=== PATIENT | male | born 1975 | race Caucasian/White ===

== ENCOUNTER 2019-01-01 11:05 | Emergency (ER) | payer MEDICAID, OTHER ==
[~2019-01-01] VITALS: Ht 177.8 cm; Wt 95.5 kg
[2019-01-01 11:34] VITALS: BP 121/95
[2019-01-01] MEDS ORDERED: TETanus/Pertussis (Acell)/Diphther VAC/PF (Tdap-Adult) 0.5ml syringe IMVAC ONE (12:15)
[2019-01-01] MEDS ORDERED: DOXY100C43 PO (13:17)
== END 2019-01-01 13:27 | disposition home or self-care (01) ==
LOC: ER 11:06
DX: L03.011 Cellulitis of right finger (principal); Z79.899 Other long term (current) drug therapy
CPT/HCPCS: 73130; 90471; 90715; 99283

== ENCOUNTER 2019-11-24 10:05 | Emergency (ER) | payer MEDICAID ==
[~2019-11-24] VITALS: Ht 177.8 cm; Wt 87.5 kg
[2019-11-24] MEDS ORDERED: ondansetron 4mg rapidly disintigrating tab PO ONE (10:55)
[2019-11-24] MEDS ORDERED: normal saline 1000ml 1,000 ML IV ONE (10:55)
[2019-11-24 11:30] LABS: BASOPHILS # (AUTO) 0.1 X10'3 (0-0.2); BASOPHILS % (AUTO) 0.4 % (0-1); EOSINOPHILS % (AUTO) 0.1 % (0-6); HEMATOCRIT 49.8 % (42.0-52.0); HEMOGLOBIN 16.9 g/dl (14.0-17.9); LYMPHOCYTES # (AUTO) 1.2 X10'3 (1.1-4.8); LYMPHOCYTES % (AUTO) 9.5 % (21-51); MEAN CORPUSCULAR HEMOGLOBIN 32.8 PG (27.0-31.0); MEAN CORPUSCULAR HGB CONC 34.1 g/dL (33.0-36.5); MEAN CORPUSCULAR VOLUME 96.2 FL (78-98); MEAN PLATELET VOLUME 7.6 FL (7.4-10.4); MONOCYTES # (AUTO) 0.8 X10'3 (0-0.9); MONOCYTES % (AUTO) 5.9 % (2-12); NEUTROPHILS % (AUTO) 84.1 % (42-75); PLATELET COUNT 265 X10'3 (140-440); RED BLOOD COUNT 5.18 X10'6 (4.70-6.10); RED CELL DISTRIBUTION WIDTH 12.9 % (11.5-14.5); WHITE BLOOD COUNT 13.1 X10'3 (4.5-11.0)
[2019-11-24 11:49] LABS: ALANINE AMINOTRANSFERASE 26 U/L (12-78); ALBUMIN 4.6 G/DL (3.4-5.0); ALBUMIN/GLOBULIN RATIO 1.3 (1.1-1.5); ALKALINE PHOSPHATASE 98 IU/L (46-116); ANION GAP 14 (8-16); ASPARTATE AMINO TRANSFERASE 27 U/L (10-37); BILIRUBIN,TOTAL 1.6 MG/DL (0.1-1.0); BLOOD UREA NITROGEN 14 MG/DL (7-18); BUN/CREATININE RATIO 14.7 (5.4-32.0); CALCIUM 9.2 MG/DL (8.5-10.1); CHLORIDE 99 MMOL/L (99-107); CREATININE 0.95 MG/DL (0.60-1.10); GLUCOSE 98 MG/DL (70-104); LIPASE 82 U/L (73-393); POTASSIUM 4.4 MMOL/L (3.5-5.1); SODIUM 136 MMOL/L (135-145); TOTAL CARBON DIOXIDE 23.4 MMOL/L (24-32); TOTAL PROTEIN 8.2 G/DL (6.4-8.2); eGFR 87 ML/MIN
[2019-11-24] MEDS ORDERED: LOPE-190 PO (12:21)
[2019-11-24] MEDS ORDERED: ONDA4TAB6 PO (12:21)
[2019-11-24 12:50] VITALS: BP 143/79
== END 2019-11-24 12:52 | disposition home or self-care (01) ==
LOC: ER 10:05
DX: R11.2 Nausea with vomiting, unspecified (principal); B34.9 Viral infection, unspecified; R10.13 Epigastric pain; Z79.899 Other long term (current) drug therapy
CPT/HCPCS: 36415; 80053; 83690; 85025; 96360; 99283; J7030

== ENCOUNTER 2024-03-22 00:13 | Emergency (ER) | payer MEDICAID, SELFPAY ==
[~2024-03-22] VITALS: Ht 177.8 cm; Wt 90.0 kg
[~2024-03-22 00:13] MED LIST: LOPE-190 PO; ONDA4TAB6 PO
[2024-03-22 00:19] VITALS: BP 140/97; PULSE 114; RESP 20; TEMP 98.2; O2SAT 97
[2024-03-22 00:47] LABS: MEAN CORPUSCULAR HEMOGLOBIN 34.1 PG (27.0-31.0); MEAN CORPUSCULAR HGB CONC 34.1 g/dL (33.0-36.5); MEAN CORPUSCULAR VOLUME 99.9 FL (78-98)
[2024-03-22 00:54] LABS: BASOPHILS # (AUTO) 0.1 X10'3 (0-0.2); BASOPHILS % (AUTO) 0.7 % (0-1); EOSINOPHILS # (AUTO) 0.3 X10'3 (0-0.9); EOSINOPHILS % (AUTO) 3.4 % (0-6); LYMPHOCYTES # (AUTO) 1.8 X10'3 (1.1-4.8); MEAN PLATELET VOLUME 8.7 FL (7.4-10.4); MONOCYTES # (AUTO) 1.1 X10'3 (0-0.9); MONOCYTES % (AUTO) 14.7 % (2-12); NEUTROPHILS # (AUTO) 4.3 X10'3 (1.8-7.7); NEUTROPHILS % (AUTO) 57.2 % (42-75); PLATELET COUNT 78 X10'3 (140-440); RED CELL DISTRIBUTION WIDTH 13.5 % (11.5-14.5); WHITE BLOOD COUNT 7.5 X10'3 (4.5-11.0)
[2024-03-22 00:59] LABS: ALANINE AMINOTRANSFERASE 114 U/L (12-78); ALBUMIN 4.1 G/DL (3.4-5.0); ALKALINE PHOSPHATASE 114 IU/L (46-116); ANION GAP 15 (8-16); ASPARTATE AMINO TRANSFERASE 115 U/L (10-37); BILIRUBIN,TOTAL 1.8 MG/DL (0.1-1.0); BLOOD UREA NITROGEN 5 MG/DL (7-18); BUN/CREATININE RATIO 7.1 (10.0-20.0); CALCIUM 8.9 MG/DL (8.5-10.1); CHLORIDE 92 MMOL/L (99-107); GLUCOSE 109 MG/DL (70-104); LIPASE 65 U/L (16-77); POTASSIUM 3.4 MMOL/L (3.5-5.1); SODIUM 130 MMOL/L (135-145); TOTAL CARBON DIOXIDE 23.3 MMOL/L (24-32); TOTAL PROTEIN 8.2 G/DL (6.4-8.2); eCRCL 135 ML/MIN; eGFR > 90 ML/MIN
[2024-03-22 02:00] LABS: BILIRUBIN,URINE NEGATIVE (Neg); CLARITY,URINE CLOUDY (Clear); COLOR,URINE YELLOW (Yellow); GLUCOSE, URINE NEGATIVE (Neg); KETONES,URINE NEGATIVE (Neg); LEUKOCYTE ESTERASE ,URINE NEGATIVE (Neg); NITRITES, URINE NEGATIVE (Neg); OCCULT BLOOD,URINE NEGATIVE (Neg); PROTEIN,URINE NEGATIVE (Neg); UROBILINOGEN,URINE 0.2 E.U/dL (0.2-1.0)
[2024-03-22 02:05] LABS: UA COLLECTION TYPE CLN CATCH MIDSTREAM
[2024-03-22 02:07] LABS: RBC,URINE 0-2 /HPF (0-2); SQUAMOUS EPITHELIAL CELL,UR FEW /LPF (FEW); WBC,URINE 0-4 /HPF (0-4)
[2024-03-22 02:11] LABS: AMORPHOUS URATES 2+; BACTERIA,URINE FEW /HPF (Neg)
== END 2024-03-22 05:13 | disposition left against medical advice (07) ==
LOC: ER 00:14
DX: K92.1 Melena (principal); Z53.21 Procedure and treatment not carried out due to patient leaving prior to being seen by health care provider
CPT/HCPCS: 36415; 71046; 80053; 81001; 83690; 85025; 86885; 86900; 86901; 99281

== ENCOUNTER 2025-10-11 15:14 | Emergency (ER) | payer MEDICAID ==
[~2025-10-11] VITALS: Ht 177.8 cm; Wt 91.1 kg
[2025-10-11 15:22] VITALS: PULSE 85
--- NOTE | 2025-10-11 15:28 | Physician Documentation ---
History of Present Illness ~ Stated Complaint: CHEST PAIN Time Seen by MD: 15:28 Primary Medical Doctor: chip: tierra mas HPI 42-year-old male who presents to the emergency department with a complaint of left chest discomfort for three days. Reports mild history elevated cholesterol that is has been corrected. Denies having prior cardiac history. Denies being diabetic. Pain has been persistent that he describes as heartburn. No associated nausea or vomiting and/or diaphoresis. Denies recent hospitalizations, recent illness injury or fevers. Patient has a moderate alcohol drinker. He denies smoking history. Medication Reconciliation Allergies: Coded Allergies: No Known Allergies (Unverified , 10/11/25) Scheduled Loperamide HCl (Imodium A-D), 2 CAPSULE PO DAILY Ondansetron Hcl (Zofran), 1 TAB PO Q6H Past Medical History Past Medical History: No Pertinent History Past Surgical History: no surgical history Alcohol Use: None Drug Use: none Lives In: Home Review of Systems All Other Systems at this time: Reviewed and Negative Constitutional: Reports: see HPI Physical Exam Vital Signs: RN Vital Signs have been reviewed: Yes General Appearance: alert, WD/WN, mild distress EENT: normal ENT inspection Neck: normal inspection Respiratory: lungs clear, normal breath sounds Chest: no accessory muscle use, tenderness reproducible Cardiovascular: normal peripheral pulses Gastrointestinal: normal palpation Extremities: normal inspection Neurologic: oriented x4 Psychiatric: normal mood/affect Skin: normal color, warm/dry Progress Results/Orders Results/Orders Vital Signs 10/11/25 15:22 Temp 97.6 Pulse 85 Resp 18 B/P (MAP) 171/113 Pulse Ox 100 O2 Flow Rate 0 Laboratory Tests Test 10/11/25 15:29 White Blood Count 9.3 Red Blood Count 4.73 Hemoglobin 15.2 Hematocrit 44.9 Mean Corpuscular Volume 95.0 Mean Corpuscular Hemoglobin 32.2 H Mean Corpuscular Hemoglobin Concent 33.9 Red Cell Distribution Width 12.7 Platelet Count 247 Mean Platelet Volume 7.7 Neutrophils (%) (Auto) 61.4 Lymphocytes (%) (Auto) 28.9 Monocytes (%) (Auto) 7.1 Eosinophils (%) (Auto) 1.9 Basophils (%) (Auto) 0.7 Neutrophils # (Auto) 5.7 Lymphocytes # (Auto) 2.7 Monocytes # (Auto) 0.7 Eosinophils # (Auto) 0.2 Basophils # (Auto) 0.1 CBC Comment Sodium Level 139 Potassium Level 3.9 Chloride Level 103 Carbon Dioxide Level 27.7 Anion Gap 8 Blood Urea Nitrogen 8 Creatinine 0.63 Estimated GFR/1.73 m2 > 90 BUN/Creatinine Ratio 12.7 Glucose Level 86 Calcium Level 8.3 L Troponin I High Sensitivity 4 Pro-B-Type Natriuretic Peptide 40 Albumin 3.7 Chemistry Comments Medical Decision Making Additional information obtaine: N/A Findings Examination history not likely consistent with acute coronary syndrome yet we will screen labs, EKGs chest x-ray. EKG reassuring for no ST elevation. Laboratory screening pending. Patient resting comfortably emergency department awaiting direct bed for additional evaluation and management. Labs reassuring, EKG reassuring, chest x-ray imaging reassuring. Discomfort likely secondary to inflammatory syndrome/viral syndrome not likely representing acute coronary syndrome. Patient to be discharged with anti-inflammatory medications instructions to follow up. Heart Score: 2 Differential Dx:Considerations: Include: angina, aortic dissection, chest wall pain, cholelithiasis, CHF, costochondritis, esophageal reflux/spasm, gastritis, herpes zoster, myocardial infarction, pericarditis, pleuritis, pancreatitis, pneumonia, pneumothorax, pulmonary embolus, other Departure Disposition: 01 HOME / SELF CARE / HOMELESS Impression: Primary Impression: Tenderness of chest wall Condition: Improved Discharge Instructions: Chest Wall Pain Additional Instructions: Today in the emergency department you had labs obtained, chest x-ray imaging and EKG which were all reassuring. Please begin ibuprofen as directed and return to the emergency department if symptoms worsen. Make follow up appointment with your primary care physician. Thank you for visiting in the emergency department [facility]. Referrals: NO PRIMARY CARE PROVIDER (PCP) Prescriptions Ibuprofen* (Motrin*) 400 Mg Tablet 1 TAB PO Q8H for pain or fever for 10 Days, #30 TAB Prov: SARAH TREVINO PAC 10/11/25 Education Educated: Patient Educated regarding: diagnosis, treatment, prognosis, need for follow up Signature Scribe Signature: . Attestation: SARAH SULLIVAN PAC Oct 11, 2025 15:28
--- NOTE | 2025-10-11 15:43 | RADIOLOGY REPORT ---
CHEST RADIOGRAPH Indication: CP Technique: Single frontal view of the chest was obtained COMPARISON: DI CHEST,TWO VIEWS on DOS: 03/22/24 FINDINGS: Lungs and pleural spaces are clear. Cardiac silhouette and chidi are within normal limits. Bones and soft tissues demonstrate no significant abnormality. IMPRESSION: No acute disease.
[2025-10-11 15:58] LABS: MEAN PLATELET VOLUME 7.7 FL (7.4-10.4); RED CELL DISTRIBUTION WIDTH 12.7 % (11.5-14.5)
--- NOTE | 2025-10-11 16:05 | ELECTROCARDIOGRAPH REPORT ---
[facility] Test Date: 2025-10-11 Test Time: 15:18:12 Pat Name: OLEG ROME Department: EMERGENCY ROOM Patient ID: [id number] Room: Gender: M Pediatric Oncology Nurse: : 1975 Requested By: ZEV CLARK Order Number: [id number] Reading MD: Dr. AIDAN [place] Measurements Intervals [place] Rate: 84 P: 67 VT: 136 QRS: 38 QRSD: 90 T: -1 QT: 374 QTc: 443 Interpretive Statements Sinus rhythm Abnormal R-wave progression, early transition Baseline wander in lead(s) I,III,aVR,aVL,V4,V5,V6 Electronically Signed On 10-12-2025 16:52:[address] AIDAN [place] Please click the below link to view image of tracing.
[2025-10-11 16:18] LABS: CREATININE 0.63 MG/DL (0.60-1.10); PRO BRAIN NATRIURETIC PEPTIDE 40 PG/ML (0-125); TOTAL CARBON DIOXIDE 27.7 MMOL/L (24-32); eCRCL 148 ML/MIN; eGFR > 90 ML/MIN
[2025-10-11] MEDS ORDERED: IBUP-1984 PO (16:43)
[2025-10-11 17:13] VITALS: BP 134/98; RESP 18; TEMP 97.6; O2SAT 99
== END 2025-10-11 17:18 | disposition home or self-care (01) ==
LOC: ER 15:15
DX: R07.89 Other chest pain (principal); R06.03 Acute respiratory distress; E78.00 Pure hypercholesterolemia, unspecified; Z79.899 Other long term (current) drug therapy
CPT/HCPCS: 36415; 71045; 80048; 83880; 84484; 85025; 93005; 99285